=== PATIENT | male | born 1960 | race Caucasian/White ===

== ENCOUNTER → 2023-12-09 | Outpatient (REF) | payer OTHER ==
[2023-12-09 12:30] LABS: BASO % 0.5 % (0.0-1.0); EOS # 0.3 10^3/uL (0.0-0.5); EOS % 4.9 % (0.0-3.0); HEMATOCRIT 47.9 % (42.0-52.0); LYMPH # 3.1 10^3/uL (1.5-5.0); LYMPH % 56.7 % (24.0-44.0); MEAN CORPUSCULAR HEMOGLOBIN 31.2 pg (27.0-33.0); MEAN CORPUSCULAR HGB CONC 33.4 g/dl (32.0-36.5); MEAN CORPUSCULAR VOLUME 93.4 fl (80.0-96.0); MONO # 0.4 10^3/uL (0.0-0.8); MONO % 7.2 % (2.0-8.0); NEUTROPHILS # 1.7 10^3/uL (1.5-8.5); NEUTROPHILS % 30.3 % (36.0-66.0); PLATELET COUNT, AUTOMATED 242 10^3/uL (150-450); RED BLOOD COUNT 5.13 10^6/uL (4.30-6.10); WHITE BLOOD COUNT 5.5 10^3/uL (4.0-10.0)
[2023-12-09 12:57] LABS: ALBUMIN 3.7 G/DL (3.2-5.2); ALKALINE PHOSPHATASE 58 U/L (40-129); ALT/SGPT 36 U/L (7.0-40); AST/SGOT 17 U/L (<34); BILIRUBIN,TOTAL 0.7 MG/DL (0.3-1.2); BLOOD UREA NITROGEN 19 MG/DL (9-23); CARBON DIOXIDE LEVEL 28 MMOL/L (20-31); CHLORIDE LEVEL 106 MMOL/L (98-107); CREATININE FOR GFR 0.98 MG/DL (0.70-1.30); GLOMERULAR FILTRATION RATE > 60.0 (>49); GLUCOSE, FASTING 102 MG/DL (74-106); POTASSIUM SERUM 4.6 MMOL/L (3.5-5.1); SODIUM LEVEL 139 MMOL/L (136-145); TOTAL PROTEIN 6.9 G/DL (5.7-8.2)
[2023-12-09 12:58] LABS: FOLATE 17.8 NG/ML (>5.4); VITAMIN B12 LEVEL 759 PG/ML (211-911)
== END ==
LOC: M LABDRAWC 11:45
PROVIDERS: ATTEND Emergency Medicine
DX: H91.92 Unspecified hearing loss, left ear (principal); M25.569 Pain in unspecified knee; E55.9 Vitamin D deficiency, unspecified; M54.2 Cervicalgia; D51.1 Vitamin B12 deficiency anemia due to selective vitamin B12 malabsorption with proteinuria; M25.529 Pain in unspecified elbow; M25.519 Pain in unspecified shoulder; M25.641 Stiffness of right hand, not elsewhere classified

== ENCOUNTER → 2024-10-01 | Outpatient (CLI) | payer OTHER | LOC: M LAB 09-29 08:36 | PROVIDERS: ATTEND Emergency Medicine | DX: D51.1 Vitamin B12 deficiency anemia due to selective vitamin B12 malabsorption with proteinuria (principal); H91.22 Sudden idiopathic hearing loss, left ear; H81.4 Vertigo of central origin; M25.569 Pain in unspecified knee; M25.519 Pain in unspecified shoulder; H91.92 Unspecified hearing loss, left ear; M25.641 Stiffness of right hand, not elsewhere classified; M25.462 Effusion, left knee; H93.13 Tinnitus, bilateral ==